=== PATIENT | female | born 1945 | race Caucasian/White ===

== ENCOUNTER → 2017-01-25 | Outpatient (CLI) | payer MEDICARE, BC | LOC: KOH-I 15:17 | DX: R05 Cough (principal); M54.6 Pain in thoracic spine; R07.81 Pleurodynia; M47.894 Other spondylosis, thoracic region | CPT/HCPCS: 71010; 71101; 72070; 74000 ==

== ENCOUNTER → 2017-03-07 | Outpatient (CLI) | payer MEDICARE, BC | LOC: KOH-I 15:01 | DX: M25.572 Pain in left ankle and joints of left foot (principal); M79.89 Other specified soft tissue disorders | CPT/HCPCS: 73610 ==

== ENCOUNTER → 2021-11-19 | Outpatient (CLI) | payer MEDICARE, BC ==
[2021-11-19 09:32] LABS: HEMOGLOBIN 9.8 gm/dl (12.3-15.3); RED BLOOD COUNT 4.91 M/UL (4.00-5.10); WHITE BLOOD COUNT 6.1 K/UL (4.5-11.0)
== END ==
LOC: RAD 11-16 09:00
PROVIDERS: Radiology Diagnostic Radiology
DX: M75.121 Complete rotator cuff tear or rupture of right shoulder, not specified as traumatic (principal); M19.011 Primary osteoarthritis, right shoulder
CPT/HCPCS: 36415; 73040; 73201; 85027; 85610; 85730; Q9967

== ENCOUNTER → 2021-12-03 | Outpatient (CLI) | payer MEDICARE, BC ==
[~2021-12-03] MED LIST: CALCIUM + D3 E1 EACH PO; CENTRUM SILVER1 EAC1 PO; CO Q-1010 MG PO; FENOFIBRATE160 MG PO; FISH OIL 1,0001 EACH PO; GABAPENTIN300 MG PO; LEVOTHYROXINE125 MCG PO; OMEPRAZOLE20 MG PO; OSTEO BI-FLEX1 EACH PO; SINGULAIR10 MG PO; SOTALOL80 MG PO; TYLENOL ARTHRITIS PO; WARFARIN SODIUM5 MG PO; ZETIA10 MG PO
[2021-12-03 10:46] LABS: RED BLOOD COUNT 4.88 M/UL (4.00-5.10); WHITE BLOOD COUNT 6.4 K/UL (4.5-11.0)
== END ==
LOC: OPSV2 10:00
PROVIDERS: Orthopaedic Surgery
DX: Z01.818 Encounter for other preprocedural examination (principal); M75.101 Unspecified rotator cuff tear or rupture of right shoulder, not specified as traumatic; I48.91 Unspecified atrial fibrillation; R94.31 Abnormal electrocardiogram [ECG] [EKG]
CPT/HCPCS: 71046; 80048; 85027; 93005

== ENCOUNTER → 2021-12-09 | Outpatient (CLI) | payer MEDICARE, BC ==
[~2021-12-09] MED LIST changes: +8 HOUR PAIN RE650 MG PO; +CLARITIN10 MG PO; -CO Q-1010 MG PO; +CO Q-10100 MG PO; +MELOXICAM15 MG PO; +ROXICODONE5 MG PO; +VITAMIN D325 MCG PO; +ZOFRAN 4 MG TAB4 MG PO
== END ==
LOC: LAB 11:49
PROVIDERS: Orthopaedic Surgery
DX: Z01.812 Encounter for preprocedural laboratory examination (principal); M75.101 Unspecified rotator cuff tear or rupture of right shoulder, not specified as traumatic; I48.91 Unspecified atrial fibrillation
CPT/HCPCS: 36415; 80048; 85610; 85730; 86850; 86900; 86901

== ENCOUNTER 2021-12-10 06:22 | Day surgery (SDC) | payer MEDICARE, BC ==
[~2021-12-10] VITALS: Ht 162.6 cm; Wt 81.6 kg
[~2021-12-10 06:22] MED LIST changes: -8 HOUR PAIN RE650 MG PO; -CALCIUM + D3 E1 EACH PO; -CENTRUM SILVER1 EAC1 PO; -CLARITIN10 MG PO; -CO Q-10100 MG PO; -MELOXICAM15 MG PO; -OMEPRAZOLE20 MG PO; -ROXICODONE5 MG PO; -VITAMIN D325 MCG PO; -ZETIA10 MG PO; -ZOFRAN 4 MG TAB4 MG PO
[2021-12-10] MEDS ORDERED: ZOFRAN 4 MG TAB4 MG PO (10:17)
[2021-12-10] MEDS ORDERED: ZETIA10 MG PO (11:50)
[2021-12-10] MEDS ORDERED: WARFARIN SODIUM5 MG PO (11:56)
[2021-12-10] MEDS ORDERED: OMEPRAZOLE20 MG PO (11:57)
[2021-12-10] MEDS ORDERED: CALCIUM + D3 E1 EACH PO (11:58)
[2021-12-10] MEDS ORDERED: CENTRUM SILVER1 EAC1 PO (11:59)
[2021-12-10] MEDS ORDERED: CO Q-10100 MG PO (12:00)
[2021-12-10] MEDS ORDERED: MELOXICAM15 MG PO (20:59)
[2021-12-10] MEDS ORDERED: ROXICODONE5 MG PO (21:02)
[2021-12-10] MEDS ORDERED: 8 HOUR PAIN RE650 MG PO (21:18)
[2021-12-10] MEDS ORDERED: VITAMIN D325 MCG PO (21:24)
[2021-12-10] MEDS ORDERED: CLARITIN10 MG PO (21:24)
--- NOTE | 2021-12-11 10:11 | NUR ---
PATIENT'S MAR CLEARED AND THERE WAS NO MED REC COMPLETED, CALLED [facility] FIRST AND HE REFERRED ME TO CALL DR CARREON. CALLED DR CARREON AND COMPLETED THE MED REC FOR HOME AND D/C MEDICATIONS. WAITING ON [facility] TO COME IN AND COMPLETE THE DISCHARGE PORTION ON THE COMPUTER AND WILL D/C PATIENT.
--- NOTE | 2021-12-11 10:26 | NUR ---
VERIFIED WITH PHYSICAL THERAPY THAT THEY HAD COMPLETED THEIR ASSESSMENT OF THE PATIENT AND SHE WAS GOOD FOR DISCHARGE.
== END 2021-12-11 11:00 | disposition home or self-care (01) ==
LOC: OR 06:22 → M/S 11:54 → OR 12-11 11:00
DX: M75.101 Unspecified rotator cuff tear or rupture of right shoulder, not specified as traumatic (principal); S43.431A Superior glenoid labrum lesion of right shoulder, initial encounter; G89.18 Other acute postprocedural pain; X58.XXXA Exposure to other specified factors, initial encounter; E78.5 Hyperlipidemia, unspecified; K21.9 Gastro-esophageal reflux disease without esophagitis; E03.9 Hypothyroidism, unspecified; Z79.02 Long term (current) use of antithrombotics/antiplatelets; Z79.899 Other long term (current) drug therapy; Z86.16 Personal history of COVID-19
CPT/HCPCS: 73020; 97116-GP-CQ; 97162; 97165; 97530; 97535; C1713; C1776; J0592; J0690; J1100; J2001; J2405; J2704; J2795; J3010; J3370; J7120